=== PATIENT | female | born 1935 | race Caucasian/White ===

== ENCOUNTER 2021-02-27 14:34 | Emergency (ER) | payer MEDICAID, SELFPAY ==
[~2021-02-27] VITALS: Ht 154.9 cm; Wt 56.7 kg
[2021-02-27 14:34] VITALS: BP_SYST 132
--- NOTE | 2021-02-27 14:34 | NUR ---
Pt to bed 2 for evaluation. Pt gowned and attached to cardiac nurse. Report given to GABRIELA Kumar who will assume care.
[2021-02-27] MEDS ORDERED: DILTIAZEM HCL 25 MG/5 ML VIAL IVP ONE ×3 (14:45→16:00)
--- NOTE | 2021-02-27 14:45 | NUR ---
ASSISTING PRIMARY NURSE, PT NOTED TO BE TACHYPNIC, GRUNTING. RT CALLED, PLACED ON VENTURI 50%.
--- NOTE | 2021-02-27 14:52 | NUR ---
LARGE AREAS TO LEFT THIGH NOTED TO BE PURPLE/RED IN COLOR WITH SKIN TEAR WITH WEEPING TO LEFT THIGH AREA. 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 CN IN ROOM TO SEE PT. NO FAMILY AT THIS TIME, PT UNABLE TO COMMUNICATE. CZECH SPEAKING.
[2021-02-27] MEDS ORDERED: ONDANSETRON HCL 4 MG/2 ML VIAL IVP ONE (15:00)
[2021-02-27] MEDS ORDERED: NACL 0.9% 1,000 ML IV ONE ×2 (15:00→18:15)
--- NOTE | 2021-02-27 15:03 | NUR ---
PT THREW UP LARGE AMOUNTS OF UNDIGESED FOOD, SUCTIONED. ZOFRAN GIVEN.
[2021-02-27] MEDS ORDERED: ONDANSETRON HCL 4 MG/2 ML VIAL ONE (15:07)
--- NOTE | 2021-02-27 15:07 | NUR ---
# 16 FR NG tube placed to nare. Placement checked by auscultation of instilled air into stomach and aspiration of gastric contents. Tubing taped in place to prevent dislodging. Patient tolerated .
[2021-02-27] MEDS ORDERED: DILTIAZEM HCL 125 MG/25 ML VIAL IV ONE (16:09)
[2021-02-27 16:18] LABS: ANION GAP 18 (5-15); CALCIUM 7.3 mg/dL (8.4-11.0); CHLORIDE 102 mmol/L (98-107); CREATININE 2.68 mg/dL (0.55-1.30); GLUCOSE 147 mg/dL (70-99); POTASSIUM 4.4 mmol/L (3.5-5.1); SODIUM SERUM 138 mmol/L (136-145); UREA NITROGEN, BLOOD 88 mg/dL (8-21)
--- NOTE | 2021-02-27 16:21 | NUR ---
Dr. Piedra confirmed NG tube placement by CXR.
[2021-02-27 16:29] LABS: ALANINE AMINOTRANSFERASE 337 U/L (12-78); ALBUMIN 1.5 g/dL (3.4-4.8); ASPARTATE AMINOTRANSFERASE 553 U/L (10-37); LACTATE DEHYDROGENASE 545 U/L (81-234); TOTAL BILIRUBIN 2.4 mg/dL (0.0-1.0)
[2021-02-27] MEDS ORDERED: cefTRIAXone 1 GM in D5W 50 ML IV ONE (16:30)
[2021-02-27 16:59] LABS: C-REACTIVE PROTEIN QUANT 22.2 mg/dL (0-0.5)
[2021-02-27] MEDS ORDERED: cefTRIAXone 1 GM VIAL ONE (17:00)
[2021-02-27] MEDS ORDERED: VANCOMYCIN HCL 1,000 MG in NS 250 ML IV ONE (17:00)
--- NOTE | 2021-02-27 17:08 | NUR ---
DTR AT BEDSIDE UPDATED ON STATUS AND PLAN OF CARE. VERBALIZED UNDERSTANDING. STATES SHE HAD BRUSING TO HER LEFT LEG, BUT NOTHING THAT LOOKED LIKE WHAT IT IS NOW. PURPLE/RED LEFT THIGH/LEG/GROIN AREA. SKIN TEAR WITH WEEPING TO LEFT THIGH. DTR CRYING AND UPSET WITH INTERMEDIATE. CN NOTIFIED.
[2021-02-27] MEDS ORDERED: VANCOMYCIN HCL 1000 MG/VIAL IV ONE (17:28)
--- NOTE | 2021-02-27 17:37 | NUR ---
Abdominal US at bedside.
[2021-02-27] MEDS ORDERED: LABETALOL 100 MG/ 20ML VIAL IVP ONE (17:45)
--- NOTE | 2021-02-27 18:07 | NUR ---
# 16 FR Persaud catheter with use of sterile technique. Immediate return of cc urine noted. Bedside drainage bag placed below level of bladder. Urine sample collected and sent to lab. Pt tolerated procedure .
--- NOTE | 2021-02-27 18:19 | NUR ---
PT CONTINUES TO BE TACHYCARDIC WITH ACCESORY MUSCLE USE. DTR AT BEDSIDE, PT HAS A POLST INDICATIING DNR, NO INTUBATION, MEDICATION ONLY SIGNED BY PATIENT ON 07/14/2020. DR GRETTA MACIAS, CN VERIFIED.
--- NOTE | 2021-02-27 18:27 | NUR ---
FILER FINISH BROUGHT IN BY FAMILY.
[2021-02-27 18:28] LABS: BILIRUBIN,URINE 1+ (NEGATIVE); BLOOD, URINE 2+ (NEGATIVE); CLARITY/URINE TURBID (CLEAR); COLOR,URINE YELLOW (YELLOW); GLUCOSE,URINE NEGATIVE (NEGATIVE); KETONES,URINE TRACE (NEGATIVE); LEUKOCYTE ESTERASE ,URINE 3+ (NEGATIVE); NITRITE, URINE NEGATIVE (NEGATIVE); PH,URINE 5.5 (5.0-8.0); PROTEIN URINE 1+ (NEGATIVE)
[2021-02-27 18:45] VITALS: BP_SYST 87
--- NOTE | 2021-02-27 18:45 | NUR ---
REPORT GIVEN TO FUENTES OCHOA. DTR AT BEDSIDE
--- NOTE | 2021-02-27 18:48 | NUR ---
PATIENT IS ASYSTOLE ON THE MONITOR. NO AUDIBLE HEARTBEAT. DAUGHTER AND DR. GLYNN AT AT BEDSIDE. PATIENT IS DNR. TIME OF 184.
[2021-02-27 18:51] LABS: BACTERIA,URINE MANY /HPF (None Seen); COARSE GRANULAR CASTS,URINE 0-10 /LPF (None Seen); WBC,URINE >100 /HPF (0-3)
[2021-02-27 18:52] LABS: MUCUS,URINE 1+ /LPF (None Seen)
--- NOTE | 2021-02-27 18:59 | NUR ---
[facility] procurement agency contacted by GABRIELA DILL . Case # [id number]. SPOKE TO TRAE. PATIENT IS NOT A CANDIDATE FOR PROCUREMENT.
--- NOTE | 2021-02-27 19:05 | NUR ---
Admitting, Elsie Kincaid, notified of
--- NOTE | 2021-02-27 19:05 | NUR ---
supervisor hospitality house, Farnaz Osborn RN notified of .
[2021-02-27 19:21] LABS: INR 1.2 (0.8-1.2); PROTHROMBIN TIME 12.7 SECS (9.5-12.5)
--- NOTE | 2021-02-27 19:22 | NUR ---
DR. JACQUES ATTENDING PHYSICIAN PAGED AT [phone] FOR NOTIFICATION OF
--- NOTE | 2021-02-27 19:25 | NUR ---
DR. JACQUES CALLED BACK INFORMED OF . DR. JACQUES WILL SIGN CERTIFICATE TO BE FAXED TO HIS OFFICE AT [phone].
--- NOTE | 2021-02-27 19:42 | NUR ---
[facility] Department of [employer]ing [employer] called contacted by GABRIELA DILL. Spoke with Ned BOWDEN.BODY RELEASED BY INFORMATION DELIVERY ANALYST'S. PATIENT NOT A INFORMATION DELIVERY ANALYST'S CASE
--- NOTE | 2021-02-27 20:24 | NUR ---
Post mortem care given. All IVs removed. Patient placed in body bag.
--- NOTE | 2021-02-27 20:26 | NUR ---
belongings list completed. Will have daughter sign Belongings list and release personal effects to her.
--- NOTE | 2021-02-27 21:30 | NUR ---
belonging list signed by DaughterPa. Patient's belongings sent with daughter.
--- NOTE | 2021-02-27 21:43 | NUR ---
DIANNE GREENBERG CALLED [phone] SPOKE TO JULY PROCESS ENVIRONMENTAL TECHNICIAN WILL BE [phone].
--- NOTE | 2021-02-27 22:30 | NUR ---
family at bedside.
--- NOTE | 2021-02-28 01:45 | NUR ---
Keisha Crain Picked up body. Body was released Shakeel Ovalles. Decedent was identified by Bag tag, toe tag and Wrist band with GABRIELA Smyth and GABRIELA Carbajal at bedside. Daughter notified that body was picked up.
== END 2021-02-27 18:48 ==
LOC: SED 14:34
DX: A41.9 Sepsis, unspecified organism (principal); R65.21 Severe sepsis with septic shock; L03.116 Cellulitis of left lower limb; I48.20 Chronic atrial fibrillation, unspecified; Z85.6 Personal history of leukemia; Z88.0 Allergy status to penicillin; Z88.8 Allergy status to other drugs, medicaments and biological substances; Z20.822 Contact with and (suspected) exposure to COVID-19
CPT/HCPCS: 36415; 36600; 71045; 76700; 80053; 81000; 82550; 82803; 83605; 83615; 84484; 85384; 85610; 85730; 86140; 87040; 87086; 87426; 93971; 96361; 96365; 96366; 96368; 96375; 96376; 99291; J0696; J2405; J3370; J3490 ×2; J7030; J7060; 85379; 93005; 99285